=== PATIENT | male | born 1990 | race African-American/Black ===

== ENCOUNTER 2021-05-07 09:18 | Emergency (ER) | payer MEDICAID ==
[~2021-05-07] VITALS: Ht 182.9 cm; Wt 85.0 kg
[2021-05-07 09:22] VITALS: BP 159/87
== END 2021-05-07 15:56 | disposition left against medical advice (07) ==
LOC: ER 09:28
DX: R10.9 Unspecified abdominal pain (principal); Z53.21 Procedure and treatment not carried out due to patient leaving prior to being seen by health care provider